=== PATIENT | male | born 1975 | race African-American/Black ===

== ENCOUNTER 2021-04-25 07:48 | Day surgery (SDC) | payer OTHER ==
[2021-04-21 14:09] VITALS: BMI 42.9
[2021-04-25] MEDS ORDERED: METOPROLOL TARTRATE 5 MG/5 ML VIAL ONE ×2 (08:42→09:22)
[2021-04-25] MEDS ORDERED: PROPOFOL 20 ML ONE (09:22)
[2021-04-25 10:14] VITALS: TEMP 97.7
[2021-04-25 10:17] VITALS: BP 131/83; PULSE 75
== END 2021-04-25 10:20 | disposition home or self-care (01) ==
LOC: FASU-ENDO 07:48
PROVIDERS: ATTEND Internal Medicine Gastroenterology
PROC: 0DJD8ZZ Inspection of Lower Intestinal Tract, Via Natural or Artificial Opening Endoscopic (ICD-10-PCS; principal; 2021-04-25 09:24)
DX: Z12.11 Encounter for screening for malignant neoplasm of colon (principal)